=== PATIENT | female | born 1995 | race Caucasian/White ===

== ENCOUNTER → 2016-08-15 | Outpatient (CLI) | payer BC ==
[~2016-08-15] MED LIST: BCPILLS PO; HYDR-5688 PO
--- NOTE | 2016-08-15 14:14 | DIAGNOSTIC IMAGING REPORT ---
LEFT ELBOW 3 VIEWS HISTORY: LEFT ELBOW PAIN COMPARISON: None. FINDINGS: There is no fracture or dislocation. Soft tissues are unremarkable. The anterior humeral fat pad is slightly more prominent than expected for age. This raises the possibility of a trace effusion. The posterior humeral fat fat is not visualized. IMPRESSION: Questionable slight displacement of the anterior humeral fat pad raising the possibility of a trace effusion. No definite fracture or dislocation. Follow-up radiograph in 2 weeks should be considered to exclude the possibility of an occult fracture. Electronically signed by: Emmanuel Lee M.D. 08/15/2016 2:13 PM Dictated Date/Time: 08/15/2016 2:10 PM
== END | disposition home or self-care (01) ==
LOC: C.RDSM 13:50
PROVIDERS: ATTEND Family Medicine
DX: M25.522 Pain in left elbow (principal)